=== PATIENT | female | born 1970 | race Caucasian/White ===

== ENCOUNTER 2021-06-06 19:18 | Emergency (ER) | payer OTHER ==
[2021-06-06 21:23] LABS: HEMOGLOBIN 14.4 gm/dl (12.3-15.3); RED BLOOD COUNT 4.53 M/UL (4.00-5.10); WHITE BLOOD COUNT 9.4 K/UL (4.5-11.0)
[2021-06-06 21:37] LABS: BUN/CREATININE RATIO 13 (0-10)
[2021-06-07] MEDS ORDERED: VIBRAMYCIN 100100 MG PO (00:19)
[2021-06-07] MEDS ORDERED: PREDNISONE 20 M20 MG PO (00:19)
== END 2021-06-07 01:00 | disposition home or self-care (01) ==
LOC: ER1 19:18
PROVIDERS: Emergency Medicine
DX: J44.1 Chronic obstructive pulmonary disease with (acute) exacerbation (principal); I10 Essential (primary) hypertension; E78.5 Hyperlipidemia, unspecified; Z88.0 Allergy status to penicillin; F17.200 Nicotine dependence, unspecified, uncomplicated; Z90.10 Acquired absence of unspecified breast and nipple; Z20.822 Contact with and (suspected) exposure to COVID-19; Z90.49 Acquired absence of other specified parts of digestive tract; Z90.710 Acquired absence of both cervix and uterus
CPT/HCPCS: 71045; 80053; 82550; 82553; 83874; 84484; 85025; 93005; 94640; 94664; 94760; 99285; U0002